=== PATIENT | female | born 1955 | race Two or more races ===

== ENCOUNTER 2025-09-14 21:42 | Emergency (ER) | payer OTHER, SELFPAY ==
[2025-09-14 21:45] VITALS: BMI 24.5
[2025-09-14 22:00] VITALS: BP 166/76; PULSE 101; RESP 18; TEMP 36.9; O2SAT 96
--- NOTE | 2025-09-14 22:03 | XR_ITS ---
Examination: Bilateral hands, 6 views. Technique: AP, Oblique, Lateral each hand total 6 views Date and time of exam: September 14, 2025, 1001 hours INDICATIONS: Patient fell tonight with injury to both hands, bilateral hand pain Findings: Prominent osteopenia No acute fracture or dislocation involving either hand No foreign body IMPRESSION: No fracture or dislocation involving either hand
--- NOTE | 2025-09-14 22:04 | EDNOTE_ITS ---
Upper Extremity Injury RME/HPI General Chief Complaint: Extremity Injury, Upper Stated Complaint: FALL BILAT ARM PAIN Time Seen by Provider: 09/14/25 22:01 Source: patient, family, RN notes reviewed and old records reviewed Arrival date/time: 09/14/25 21:42 Mode of arrival: wheelchair Limitations: no limitations RME / HPI RME / HPI narrative: 69yof presents to ED with for bilateral hand pain. Patient states she lost her balance (hx of parkinsons) and fell backwards onto her buttocks and b/l hands. Denies head injury. No blood thinner use. Patient c/o bilateral hand pain. No neck/back or hip pain reported. Denies dizziness, LOC or syncope. 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 Previous Rx's ?Medication ?Instructions ?Recorded acetaminophen 500 mg tablet 1,000 mg (2 x 500 mg) PO Q 6H PRN 09/14/25 (Tylenol Extra Strength) pain #30 tabs Allergies Allergy/AdvReac Type Severity Reaction Status Date / Time No Known Allergies Allergy Verified 09/14/25 21:50 Review of Systems Review of Systems Systems Reviewed: All systems reviewed, normal except as documented Constitutional Constitutional: Denies headache(s) ENT Ears, Nose, Mouth, and Throat: Denies dizziness, Denies headache(s), Denies neck pain and Denies vertigo Cardiovascular Cardiovascular: Denies syncope Musculoskeletal Musculoskeletal: Reports arthralgias, Denies back pain, Denies deformity, Denies joint swelling, Denies neck pain, Denies numbness and Denies tingling Neurologic Neurologic: Denies dizziness, Denies headache(s), Denies numbness, Denies syncope, Denies tingling and Denies vertigo Past Medical History Past Medical History NEUROLOGIC: Positive Parkinson's Disease Social History SMOKING STATUS: Never smoker SUBSTANCE USE: does not use ALCOHOL: Never ED Exam General Limitations: Present no limitations General appearance: Present alert and in no apparent distress Head Head exam: Present atraumatic and normocephalic Eye Eye exam: Present normal appearance, PERRL and EOMI ENT ENT exam: Present normal exam and mucous membranes moist Neck Neck exam: Present normal inspection and full ROM; Absent tenderness Chest Chest inspection: Present normal inspection and symmetric chest wall rise; Absent tenderness Respiratory Respiratory exam: Present normal lung sounds bilaterally; Absent respiratory distress Cardiovascular Cardiovascular exam: Present regular rate and normal rhythm Extremities Exam Extremities exam: Present other (Mild tenderness to b/l dorsal hands, no swelling. FROM. <2s cap refill, sensation intact) Back Exam Back exam: Present full ROM; Absent paraspinal tenderness or vertebral tenderness Neurological Exam Neurological exam: Present alert and oriented X3 Psychiatric Psychiatric exam: Present normal affect and normal mood Skin Skin exam: Present warm, dry and intact Course Quality Measures none Orders Category Date Time Status XR hand comp BI min 3V Stat Exams 09/14/25 22:03 Completed Gabapentin [Neurontin] Med 09/14/25 22:03 Discontinued 300 mg PO X1 ONE HYDROcodone*/APAP 5/325 [[place] 5/325] Med 09/14/25 22:03 Discontinued 1 tab PO X1 ONE Vital Signs Vital signs: Vital Signs Temperature 98.4 F 09/14/25 22:00 Pulse Rate 101 H 09/14/25 22:00 Respiratory Rate 18 09/14/25 22:00 Blood Pressure 166/76 H 09/14/25 22:00 Pulse Oximetry (%) 96 09/14/25 22:00 Oxygen Delivery Method Room Air 09/14/25 22:00 Extremity Injury MDM Narrative MDM Narrative:: 69yof presents to ED with for bilateral hand pain. Patient states she lost her balance (hx of parkinsons) and fell backwards onto her buttocks and b/l hands. Denies head injury. No blood thinner use. Patient c/o bilateral hand pain. No neck/back or hip pain reported. Denies dizziness, LOC or syncope. 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 Encouraged RICE therapy, tylenol prn pain. Stable for dc, RTED precautions given. Patient data External records reviewed:: None (no prior visits) Clinical information provided by:: patient and spouse Social determinants that could affect healthcare access:: none Patient has the following chronic illnesses:: parkinsons How is presenting disease/condition affected by chronic disease/condition?: caused by Evaluation data The following diagnostics were reviewed and interpreted by me:: radiology exam(s) Lab and/or radiology exams considered but not ordered:: none Interpretation Summary: Hand xrays: no fracture per my read Medications / Prescriptions Medications or Prescriptions considered but not ordered:: none Medication administrations:: Medication Administration History Discontinued Medications Hydrocodone Bitart/Acetaminophen (Hydrocodone/Apap 5/325 Tablet) 1 tab PO X1 ONE Stop: 09/14/25 22:04 Last Admin: 09/14/25 22:15 Dose: 1 tab Documented By: PHILLIP Gabapentin (Gabapentin 300 Mg Capsule) 300 mg PO X1 ONE Stop: 09/14/25 22:04 Last Admin: 09/14/25 22:15 Dose: 300 mg Documented By: PHILLIP above medications administered in ED Consultations Consultation(s) initiated? (list below): No Diagnosis Upper Extremity Injury Differential Diagnosis: other (fracture, dislocation, sprain, strain, contusion, msk pain) Most likely diagnosis given after review of the tests above:: hand strain/contusion Admission Indicated Admission indicated?: not indicated Admission Request Was there a request for admission?: No Disposition Plan Disposition Plan: Discharge Discharge Attestation Discharge Attestation: The patient and all family members were given an opportunity to ask questions and understood the discharge instructions. Discharge instructions specifically effects, indications for sooner follow up or return to the emergency department, and the expected course of current diagnosis. Patient condition: Stable Discharge Plan Plan Patient Disposition: HOME (Self Care) Patient condition on transfer: Stable Prescriptions/Referrals Prescriptions/Med Rec: New acetaminophen [Tylenol Extra Strength] 500 mg tablet 1,000 mg PO Q6H PRN (Reason: pain) Qty: 30 0RF Referrals: No Primary/Family,Physician [Primary Care Provider] - In 1 week Problem List Clinical Impression: Bilateral hand pain, Fall Patient/Caregiver Discharge Instructions Education Materials: ED Hand Contusion Additional Instructions: Alternate ibuprofen and Tylenol as needed for pain. Ice application can help with inflammation/swelling. Print Language: Icelandic Stand Alone Forms: Alisson Award Info., Patient Portal Info Letter HAYDEN/PARUL Supervising Physician HAYDEN/PARUL Supervising Physician: Devan
[2025-09-14] MEDS: HYDROcodone/APAP 5/325 TABLET 1 TAB PO (22:15)
[2025-09-14] MEDS: GABAPENTIN 300 MG CAPSULE PO (22:15)
== END 2025-09-14 23:13 | disposition home or self-care (01) ==
PROVIDERS: Emergency Provider Physician Assistant
DX: M79.641 Pain in right hand (principal); M79.642 Pain in left hand; W19.XXXA Unspecified fall, initial encounter
CPT/HCPCS: 73130; 99282; A9270